=== PATIENT | female | born 1980 | race Asian ===

== ENCOUNTER 2022-03-06 21:30 | Emergency (ER) | payer OTHER ==
[~2022-03-06] VITALS: Ht 170.2 cm; Wt 74.8 kg
[2022-03-06 23:00] VITALS: BP 142/73; TEMP 98.7
== END 2022-03-06 23:00 | disposition home or self-care (01) ==
LOC: ED 21:30
DX: G43.909 Migraine, unspecified, not intractable, without status migrainosus (principal)
CPT/HCPCS: 96372; 99283; J1200; J1885; J2550